=== PATIENT | female | born 1940 | race Two or more races ===

== ENCOUNTER 2019-12-04 13:25 | Emergency (ER) | payer MEDICARE, OTHER ==
[~2019-12-04] VITALS: Ht 157.5 cm; Wt 51.7 kg
[2019-12-04] MEDS ORDERED: LOSA25TA27 PO (13:37)
--- NOTE | 2019-12-04 13:45 | NUR ---
PATIENT IS IN ROOM 4. SHE IS A/A/O X3. PLACED ON A MONITOR.
[2019-12-04] MEDS ORDERED: ACETAMINOPHEN 325 MG TABLET ONE (13:57)
[2019-12-04] MEDS ORDERED: ACETAMINOPHEN 650 MG/20.3 ML LIQUID UDC PO ONE (14:00)
[2019-12-04 14:10] LABS: BASOPHILS # (AUTO) 0.1 K/uL (0.0-8.0); BASOPHILS % (AUTO) 1.1 % (0.0-2.0); EOSINOPHILS # (AUTO) 0.2 K/uL (0.0-0.7); EOSINOPHILS % (AUTO) 3.2 % (0.0-7.0); HEMATOCRIT 34.8 % (31.2-41.9); HEMOGLOBIN 11.3 g/dL (10.9-14.3); LYMPHOCYTES # (AUTO) 1.4 K/uL (20.0-40.0); LYMPHOCYTES % (AUTO) 20.6 % (20.5-51.5); MEAN CORPUSCULAR HEMOGLOBIN 26.1 uug (24.7-32.8); MEAN CORPUSCULAR HGB CONC 33 g/dL (32.3-35.6); MEAN CORPUSCULAR VOLUME 80.2 fL (75.5-95.3); MONOCYTES # (AUTO) 0.5 K/uL (2.0-10.0); MONOCYTES % (AUTO) 7.5 % (0.0-11.0); NEUTROPHILS # (AUTO) 4.8 K/uL (1.8-8.9); NEUTROPHILS % (AUTO) 67.6 % (38.5-71.5); PLATELET COUNT (AUTO) 214 K/uL (179-408); RED BLOOD CELL COUNT(AUTO) 4.34 MIL/uL (3.63-4.92)
[2019-12-04 14:21] LABS: POTASSIUM 4.1 mmol/L (3.5-5.1)
[2019-12-04 14:33] LABS: BILIRUBIN,DIRECT 0.1 mg/dL (0.0-0.2); BILIRUBIN,TOTAL 0.4 mg/dL (0.2-1.0); TOTAL PROTEIN, SERUM 7.8 g/dL (6.4-8.2)
[2019-12-04] MEDS ORDERED: SWABABLE VALVE TRANSFER SET EA MC ONE (14:52)
[2019-12-04] MEDS ORDERED: IV NORMAL SALINE 250 ML IV ONE (14:53)
[2019-12-04] MEDS ORDERED: IOHEXOL 350 100 ML INFUS..BTL ONE (14:53)
--- NOTE | 2019-12-04 16:01 | NUR ---
XRAYS, LABS, CT DONE. AWAITING TEST RESULTS. PATIENT STATES SHE DOES NOT HAVE CHEST PAIN OR SOB AT THIS TIME.
--- NOTE | 2019-12-04 16:10 | NUR ---
PATIENT STATES SHE DOES NOT WANT TO STAY IN THE HOSPITAL DESPITE WHAT THE DOCTORS STATES. SHE SIGNED THE AMA FORM AND STATES SHE FULLY UNDERSTANDS ALL RISKS INCLUDING .
--- NOTE | 2019-12-04 16:16 | NUR ---
DC, RX AND FOLLOW UP INSTRUCTIONS GIVEN AND EXPLAINED TO PATIENT AND DAUGHTER WHO STATE THEY UNDERSTAND ALL INSTRUCTIONS
--- NOTE | 2019-12-04 16:17 | NUR ---
IV removed. Catheter intact and site benign. Pressure and 4x4 gauze applied to site. No bleeding noted.
== END 2019-12-04 16:23 | disposition home or self-care (01) ==
LOC: ER 13:25
DX: R06.02 Shortness of breath (principal); R91.1 Solitary pulmonary nodule; I70.0 Atherosclerosis of aorta; R00.1 Bradycardia, unspecified; R94.31 Abnormal electrocardiogram [ECG] [EKG]; Z85.3 Personal history of malignant neoplasm of breast
CPT/HCPCS: 36415; 71045; 71275; 80048; 80076; 83880; 84484; 85025; 93005; 93970; 99285; Q9967; 70030-TC; A4663; J7050